=== PATIENT | female | born 1995 | race African-American/Black ===

== ENCOUNTER 2017-09-14 20:41 | Emergency (ER) | payer MEDICAID ==
[~2017-09-14] VITALS: Ht 165.1 cm; Wt 71.6 kg
[2017-09-14 21:35] LABS: MICROSCOPIC NOT IND
[2017-09-14 21:43] LABS: CULTURE INDICATED? NO
[2017-09-14] MEDS ORDERED: CEFTRIAXONE 250 MG IM ONE (22:00)
[2017-09-14] MEDS ORDERED: AZITHROMYCIN 500 MG TABLET PO ONE (22:00)
[2017-09-14] MEDS ORDERED: AZITHROMYCIN 500 MG TABLET ONE (22:02)
[2017-09-14] MEDS ORDERED: LIDOCAINE-MPF 1%, 2ML ONE (22:02)
[2017-09-14] MEDS ORDERED: CEFTRIAXONE 250 MG ONE (22:02)
[2017-09-14 22:23] LABS: HCG UR SG 1.024 (1.003-1.030)
[2017-09-14 22:27] LABS: CLUE CELLS NONE SEEN (NONE SEEN)
[2017-09-14 22:28] LABS: WET PREP WBCS NONE SEEN (FEW)
[2017-09-14 23:43] VITALS: BP 123/79
== END 2017-09-14 23:45 | disposition home or self-care (01) ==
LOC: ED 23:39
DX: N89.8 Other specified noninflammatory disorders of vagina (principal); Z20.2 Contact with and (suspected) exposure to infections with a predominantly sexual mode of transmission; N93.9 Abnormal uterine and vaginal bleeding, unspecified; R30.0 Dysuria
CPT/HCPCS: 81003; 81025; 87210; 87491; 87591; 87808; 96372; 99284; J0696

== ENCOUNTER 2017-10-19 11:05 | Emergency (ER) | payer MEDICAID ==
[~2017-10-19] VITALS: Ht 165.1 cm; Wt 73.3 kg
[2017-10-19 12:05] LABS: BASOPHILS # (AUTO) 0.03 x10^3/uL (0-0.1); BASOPHILS % (AUTO) 1 % (0-1); EOSINOPHILS # (AUTO) 0.18 x10^3/uL (0-0.4); EOSINOPHILS % (AUTO) 3 % (1-7); LYMPHOCYTES # (AUTO) 2.29 x10^3/uL (1-3.4); LYMPHOCYTES % (AUTO) 32 % (22-44); MD NO; MEAN CORPUSCULAR HEMOGLOBIN 23.8 pg (27.0-34.8); MEAN CORPUSCULAR VOLUME 74.5 fL (80-100); MONOCYTES # (AUTO) 0.31 x10^3/uL (0.2-0.8); MONOCYTES % (AUTO) 4 % (2-9); NEUTROPHILS # (AUTO) 4.38 x10^3/uL (1.8-6.8); NEUTROPHILS % (AUTO) 61 % (42-75); PLATELET COUNT 260 x10^3/uL (130-400); RED BLOOD COUNT 5.14 x10^6/uL (3.82-5.3); RED CELL DISTRIBUTION WIDTH 15.6 % (9.6-15.2)
[2017-10-19 12:10] LABS: ALANINE AMINOTRANSFERASE 24 U/L (12-78); ALBUMIN 3.6 g/dL (3.4-5.0); ANION GAP 6 mmol/L (5-15); CALCIUM 8.4 mg/dL (8.5-10.1); CHLORIDE 111 mmol/L (98-107)
[2017-10-19 12:15] LABS: ALKALINE PHOSPHATASE 54 U/L (45-117); BILIRUBIN,TOTAL 0.3 mg/dL (0.2-1.0); TOTAL PROTEIN 7.5 g/dL (6.4-8.2)
[2017-10-19 12:27] LABS: MICROSCOPIC NOT IND
[2017-10-19 12:28] LABS: CULTURE INDICATED? NO
[2017-10-19] MEDS ORDERED: ONDANSETRON ODT 4 MG ONE (12:54)
[2017-10-19] MEDS ORDERED: ONDANSETRON ODT 4 MG PO PRN (13:00)
[2017-10-19 14:01] VITALS: BP 121/74
== END 2017-10-19 14:12 | disposition home or self-care (01) ==
LOC: ED 14:10
DX: K52.9 Noninfective gastroenteritis and colitis, unspecified (principal); E86.0 Dehydration; F17.210 Nicotine dependence, cigarettes, uncomplicated
CPT/HCPCS: 36415; 80053; 81003; 84703; 85025; 99284; Q0162